=== PATIENT | male | born 1970 | race Caucasian/White ===

== ENCOUNTER 2017-01-29 11:17 | Emergency (ER) | payer OTHER ==
--- NOTE | ~2017-01-29 | CR93 ---
[facility] A Service of [facility] RADIOLOGY TEXT RESULTS PATIENT: RADHA QUINONES LOCATION: [facility] : 72 UNIT #: [id number] AGE: [address]: Lotus Damon SEX: M ORDER DR: [id number] [facility] [address] [place], [place] [address] [id number] MR#: [id number] #: [id number] NAME: RADHA QUINONES. : 1970 SEX: M STUDY DATE/TIME: 01/29/2017 UNIT: [facility] ROOM: STUDY DESCRIPTION: CR Elbow Min 3 Views Lt Attending Physician: Lotus Damon P.A.-C. Ordering Physician: Lotus Damon P.A.-C. Primary Care Physician: Eric Son Aprn MEDICAL IMAGING REPORT This report is preliminary unless electronic signature is present EXAM Left elbow 3 views 01/29/2017 1152 hours. HISTORY Patient fell while wrestling 2 weeks ago. Lateral and posterior elbow pain since fall. COMPARISON None FINDINGS AP, lateral and oblique views demonstrate no elbow joint effusion or acute fracture. There is a small ossicle adjacent to the radial head, which is well corticated and felt chronic. There are calcifications adjacent to the medial and lateral epicondyles, likely chronic. Partially imaged hardware in the radius and ulna. IMPRESSION 1. No elbow joint effusion or acute fracture. Benign ossicles are present. 2. Hardware is present partially imaged in the midshafts of the radius and ulna. Dictated by... Cherie Perkins M.D. THIS IS AN ELECTRONICALLY VERIFIED REPORT Cherie Perkins M.D. at 01/29/2017 2:27 PM MEREDITH/sheyla TD: 01/29/2017 13:23 [facility] A Service of [facility] RADIOLOGY TEXT RESULTS PATIENT: RADHA QUINONES LOCATION: [facility] : 72 UNIT #: [id number] AGE: [address]: Lotus Damon SEX: M ORDER DR: JOB #: [id number] MEDICAL IMAGING REPORT Page 1 of 1 COPY
[~2017-01-29 11:17] MED LIST: PAXIL PO
== END 2017-01-29 12:09 | disposition home or self-care (01) ==
LOC: CFTX 11:17 → CED 11:17 → CFTX 12:02
DX: S53.432A Radial collateral ligament sprain of left elbow, initial encounter (principal); F41.9 Anxiety disorder, unspecified; I10 Essential (primary) hypertension; Z88.5 Allergy status to narcotic agent; Y93.72 Activity, wrestling; Y92.009 Unspecified place in unspecified non-institutional (private) residence as the place of occurrence of the external cause
CPT/HCPCS: 29260; 73080; 99283